=== PATIENT | male | born 1955 | race Caucasian/White ===

== ENCOUNTER 2016-06-15 05:30 | Day surgery (SDC) | payer OTHER ==
[~2016-06-15] VITALS: Ht 172.7 cm; Wt 97.1 kg
[~2016-06-15 05:30] MED LIST: SYMBICORT60 INHALAT IH
[2016-06-15] MEDS ORDERED: OMEPRAZOLE20 MG PO (06:06)
[2016-06-15 06:14] VITALS: BP 136/87
[2016-06-15] MEDS ORDERED: NORCO 5/3251 TABLET PO (09:41)
[2016-06-15 10:17] VITALS: BP 142/82
[2016-06-15 11:18] VITALS: BP 119/67
[2016-06-15 12:28] VITALS: BP 139/79
== END 2016-06-15 12:33 | disposition home or self-care (01) ==
LOC: SDC 05:30
PROC: 0YU60JZ Supplement Left Inguinal Region with Synthetic Substitute, Open Approach (ICD-10-PCS; principal; 2016-06-15)
DX: K40.90 Unilateral inguinal hernia, without obstruction or gangrene, not specified as recurrent (principal); J45.909 Unspecified asthma, uncomplicated; K21.9 Gastro-esophageal reflux disease without esophagitis; E66.9 Obesity, unspecified; Z68.32 Body mass index [BMI] 32.0-32.9, adult; Z79.82 Long term (current) use of aspirin; Z82.49 Family history of ischemic heart disease and other diseases of the circulatory system; Z82.5 Family history of asthma and other chronic lower respiratory diseases
CPT/HCPCS: C1781; J0690; J1170; J1885; J2250; J2405; J3010; S0020